=== PATIENT | male | born 1995 | race Two or more races ===

== ENCOUNTER 2021-09-06 16:40 | Emergency (ER) | payer OTHER ==
[~2021-09-06] VITALS: Ht 177.8 cm; Wt 72.6 kg
[2021-09-06 16:55] VITALS: BP 160/64
[2021-09-06] MEDS ORDERED: PENICILLIN G BENZATHINE 2.4 MMU/4 ML ML IM ONE (19:29)
[2021-09-06] MEDS: PENICILLIN G BENZATHINE 2.4 MMU/4 ML ML IM ONE (19:38)
--- NOTE | 2021-09-06 19:38 | NUR ---
Patient discharged to home in stable condition. Written and verbal after care instructions given. Patient verbalizes understanding of instruction.
== END 2021-09-06 19:38 | disposition home or self-care (01) ==
LOC: ER 16:45
DX: K04.7 Periapical abscess without sinus (principal)
CPT/HCPCS: 96372; 99283; J0558